=== PATIENT | female | born 1970 | race Caucasian/White ===

== ENCOUNTER → 2019-02-10 | Outpatient (CLI) | payer MEDICAID, OTHER ==
--- NOTE | 2019-02-13 16:41 | US ---
DATE OF SERVICE: 02/10/19 CLINICAL DATA: Other abnormal and inconclusive findings on diagnostic imaging of breast LEFT BREAST ULTRASOUND: A target exam was performed. No breast mass is identified. No abnormal fluid collections. No suspicious calcifications. There is an oval shaped nodule in the left axilla consistent in appearance with a lymph node. It measures 1.4 x 1.0 x 0.6 cm. No other findings. IMPRESSION: No sonographic abnormalities of the breast. There is a left axillary node. Six month follow-up ultrasound is recommended. ACR 3 - Probably benign Ultrasound - Short interval follow-up suggested. [id number] [facility]
--- NOTE | 2019-02-13 16:46 | CRLMY ---
DATE OF SERVICE: 02/10/19 CLINICAL DATA: Other abnormal and inconclusive findings on diagnostic imaging of breast ADDITIONAL VIEWS LEFT BREAST: A focal spot compression craniocaudal view of the left breast and a straight mediolateral view of the left breast were performed. Comparison is made to a prior exam dated 01/25/19. The focal asymmetry within the outer portion of the left breast on the previous craniocaudal view dissipates with focal spot compression. The straight mediolateral view is unremarkable. A left breast ultrasound demonstrated no sonographic abnormalities within the breast. No further work up is indicated at this time. A 6 month follow-up mammogram of the left breast is recommended. ACR 3 - Probably benign Mammogram - Short interval follow-up suggested. [facility]TDD
== END ==
LOC: LB.MAM 09:05
PROVIDERS: ATTEND Nurse Practitioner Family
DX: R92.8 Other abnormal and inconclusive findings on diagnostic imaging of breast (principal); N64.89 Other specified disorders of breast
CPT/HCPCS: 76641-LT; 77065-LT